=== PATIENT | male | born 1955 | race Caucasian/White ===

== ENCOUNTER → 2020-11-14 08:26 | Outpatient (BNVA) | payer OTHER, SELFPAY | PROVIDERS: PCP Internal Medicine; Referring Provider Internal Medicine; Visit Provider Surgery | DX: Z76.89 Persons encountering health services in other specified circumstances (principal) ==

== ENCOUNTER → 2021-09-06 12:02 | Outpatient (BNVA) | payer OTHER, SELFPAY | PROVIDERS: PCP Internal Medicine; Visit Provider Surgery ==

== ENCOUNTER → 2022-03-14 11:51 | Outpatient (BNVA) | payer OTHER, SELFPAY | PROVIDERS: PCP Internal Medicine; Visit Provider Surgery | DX: Z13.89 Encounter for screening for other disorder (principal) ==

== ENCOUNTER → 2023-04-26 10:17 | Outpatient (BNVA) | payer OTHER, SELFPAY | PROVIDERS: PCP Internal Medicine; Visit Provider Surgery ==

== ENCOUNTER 2023-07-19 10:43 | Outpatient (AMB) | payer MEDICARE, SELFPAY ==
--- NOTE | 2023-07-19 10:47 | A.OFFVIS_ITS ---
Intake VS Expanded 07/19/23 10:50 Height 6 ft 1 in Weight 218 lb 9.6 oz BMI 28.8 BP 156/90 H Blood Pressure Location Rt brachial Blood Pressure Position Sitting Pulse 87 Pulse Source Pulse Oximeter Temp 98.2 F Temperature Source Temporal Artery Scan Pulse Oximetry 97 Oxygen Delivery Method Room Air Body Fat 173.6 Body Fat Percentage 45.0 Free Fat Mass 173.0 Muscle Mass 65.0 Visceral Mass 13.0 Water Mass 122.6 BMR 2,290 Intake Visit Reasons: OV Follow Up s/p LRYGP 2012 Allergies No Known Allergies [No Known Allergies*] Allergy (Verified 07/19/23 10:50) HPI HPI Comments History of Present Illness Details Has lost 9lbs since April Is doing a breakfast (yogurt or cottage cheese), lunch (salad with burger) or 2 Zone Perfect protein bars and a dinner (chicken and salad) Exercise: treadmill for 600-1000 calories 5-6 days per week PFSH Surgical History Hx of gastric bypass Family History Mother Kidney failure Father COVID-19 Heart problem Sister No problems noted. Sister No problems noted. Sister No problems noted. Brother No problems noted. Brother No problems noted. Social History Alcohol intake: current Alcohol intake frequency: a few times a month Patient Tobacco Use Status: Never used Tobacco Physical Exam Vital Signs: Last Vital Signs Temp 98.2 F 07/19/23 10:50 Pulse 87 07/19/23 10:50 BP 156/90 H 07/19/23 10:50 Pulse Ox 97 07/19/23 10:50 Oxygen Delivery Method Room Air 07/19/23 10:50 BMI result Body Mass Index 28.8 Assessment & Plan Assessment & Plan (1) Intestinal malabsorption: Code(s): K90.9 - Intestinal malabsorption, unspecified Plan: 1. Continue same nutritional plan of a breakfast (yogurt or cottage cheese), lunch (salad with burger) or 2 Zone Perfect protein bars and a dinner (chicken and salad). 2. Try to do mostly one meal per day and replace the lunch with the 2 Zone Per fect protein bars 3. Exercise: continue treadmill for 600-1000 calories 5-6 days per week (2) Overweight: Code(s): E66.3 - Overweight Coding Level of Care Code Est Pt Level 3 (91051) Diagnoses Intestinal malabsorption K90.9 Overweight E66.3 Time Spent (min) 25
[2023-07-19 10:50] VITALS: BP 156/90; PULSE 87; TEMP 36.8; O2SAT 97; BMI 28.8
== END 2023-07-19 11:51 | disposition home or self-care (01) ==
PROVIDERS: PCP Internal Medicine; Visit Provider Surgery
DX: E66.3 Overweight (principal); Z68.28 Body mass index [BMI] 28.0-28.9, adult; Z98.84 Bariatric surgery status; K90.9 Intestinal malabsorption, unspecified
CPT/HCPCS: 99213

== ENCOUNTER → 2023-07-19 10:43 | Outpatient (BNVA) | payer MEDICARE, SELFPAY | PROVIDERS: PCP Internal Medicine; Visit Provider Surgery | DX: E66.3 Overweight (principal); K90.9 Intestinal malabsorption, unspecified; Z68.28 Body mass index [BMI] 28.0-28.9, adult | CPT/HCPCS: 99212 ==

== ENCOUNTER 2023-10-11 11:04 | Outpatient (AMB) | payer MEDICARE, BC, SELFPAY ==
--- NOTE | 2023-10-11 11:07 | A.OFFVIS_ITS ---
Intake VS Expanded 10/11/23 11:17 BP 181/96 H Blood Pressure Location Rt brachial Blood Pressure Position Sitting Pulse 76 Pulse Source Pulse Oximeter Temp 98.0 F Temperature Source Temporal Artery Scan Pulse Oximetry 100 Oxygen Delivery Method Room Air Height 6 ft 1 in Weight 217 lb 9.6 oz BMI 28.7 Body Fat % 21.7 Body Fat Mass 47.2 Fat Free Mass 170.4 Visceral Fat Rating 14.0 Body Water % 54.9 Body Water Mass 119.4 Muscle Mass/Score 162.0 Basal Metabolic Rate/Score 2,250 Intake Visit Reasons: OV Follow Up s/p LRYGP 2012 Allergies No Known Allergies [No Known Allergies*] Allergy (Verified 10/11/23 11:12) HPI HPI Comments History of Present Illness Details Overall weight loss: 74% EWL from his preop weight Doing well. No abdominal pain or GERD Is having a breakfast (a yogurt, a slice of toast and blueberries), lunch and dinner (sandwich or meat with salad) One snack: a cookie Exercise: treadmill 6 days per week for 500-1000 calories each time, 2 mile walk 6 days per week with dogs [facility] Surgical History Hx of gastric bypass Family History Mother Kidney failure Father COVID-19 Heart problem Sister No problems noted. Sister No problems noted. Sister No problems noted. Brother No problems noted. Brother No problems noted. Social History Alcohol intake: current Alcohol intake frequency: a few times a month Patient Tobacco Use Status: Never used Tobacco Physical Exam Vital Signs: Last Vital Signs Temp 98.0 F 10/11/23 11:17 Pulse 76 10/11/23 11:17 BP 181/96 H 10/11/23 11:17 Pulse Ox 100 10/11/23 11:17 Oxygen Delivery Method Room Air 10/11/23 11:17 BMI result Body Mass Index 28.7 Assessment & Plan Assessment & Plan (1) Overweight: Code(s): E66.3 - Overweight Plan 1. Continue same nutritional plan of a breakfast (a yogurt, a slice of toast and blueberries), lunch and dinner (sandwich or meat with salad) and one snack. 2. Consider, replacing breakfast, lunch and the snack 2-3 days per week with 3 protein bars 3. We discussed the importance of using protein bars as routinely as possible because they allow easier and more efficient protein/amino acid absorption than food due to his history of gastric bypass surgery. 4. Exercise: continue treadmill 6 days per week for 500-1000 calories each time, 2 mile walk 6 days per week with dogs Coding Level of Care Code Est Pt Level 4 (80941) Diagnoses Overweight E66.3 Time Spent (min) 30
[2023-10-11 11:17] VITALS: BP 181/96; PULSE 76; TEMP 36.7; O2SAT 100; BMI 28.7
== END 2023-10-11 11:52 | disposition home or self-care (01) ==
PROVIDERS: PCP Internal Medicine; Visit Provider Surgery
DX: E66.3 Overweight (principal); Z68.28 Body mass index [BMI] 28.0-28.9, adult; Z90.3 Acquired absence of stomach [part of]; Z98.84 Bariatric surgery status
CPT/HCPCS: 99214

== ENCOUNTER → 2023-10-11 11:04 | Outpatient (BNVA) | payer MEDICARE, BC, SELFPAY | PROVIDERS: PCP Internal Medicine; Visit Provider Surgery | DX: E66.3 Overweight (principal); Z68.28 Body mass index [BMI] 28.0-28.9, adult | CPT/HCPCS: 99212 ==

== ENCOUNTER 2024-10-09 10:15 | Outpatient (AMB) | payer MEDICARE, BC, SELFPAY ==
--- NOTE | 2024-10-07 22:17 | A.OFFVIS_ITS ---
VS Expanded 10/09/24 10:24 BP 168/92 H Blood Pressure Location Rt brachial Blood Pressure Position Left Lateral Pulse 86 Pulse Source Pulse Oximeter Temp 97.5 F Temperature Source Temporal Artery Scan Pulse Oximetry 98 Oxygen Delivery Method Room Air Height 6 ft 1 in Weight 220 lb 6.4 oz BMI 29.1 Body Fat % 22.5 Body Fat Mass 49.6 Fat Free Mass 170.6 Visceral Fat Rating 14.0 Body Water % 54.3 Body Water Mass 119.4 Muscle Mass/Score 162.2 Basal Metabolic Rate/Score 2,257 Neck Circumference 15 in Waist Circumference 3 ft 3 in Comment 150/86 left brachial Intake Visit Reasons: OV Follow Up s/p LRYGP 2012 Allergies No Known Allergies [No Known Allergies*] Allergy (Verified 10/09/24 10:20) Medication List - Last Reviewed 10/09/24 by Riana Knowles CMA lansoprazole 30 mg PO DAILY losartan 100 mg PO DAILY losartan-hydrochlorothiazide 100-25 mg 1 tab PO DAILY HPI Comments Details: Overall weight loss: 73% EWL from his preop weight Doing well. No abdominal pain or GERD Is having a breakfast (a yogurt, a slice of toast and blueberries), lunch and dinner (sandwich or meat with salad) One snack: a cookie Exercise: treadmill 6 days per week for 500-1000 calories each time, 2 mile walk 6 days per week with dogs Would like to lose another 5-10lbs until Spring [facility] Surgical History Hx of gastric bypass Family History Mother Kidney failure Father COVID-19 Heart problem Sister No problems noted. Sister No problems noted. Sister No problems noted. Brother No problems noted. Brother No problems noted. Social History Alcohol intake: current Alcohol intake frequency: a few times a month Patient Tobacco Use Status: Never used Tobacco Physical Exam Vital Signs: Last Vital Signs Temp 97.5 F 10/09/24 10:24 Pulse 86 10/09/24 10:24 BP 168/92 H 10/09/24 10:24 Pulse Ox 98 10/09/24 10:24 Oxygen Delivery Method Room Air 10/09/24 10:24 BMI result Body Mass Index 29.1 GI Inspection: Yes normal to inspection and Yes incision (well healed) Palpation (GI): Soft to palpation Extrem Right lower extremity: normal to inspection Left lower extremity: normal to inspection Assessment & Plan Assessment & Plan (1) Overweight: Code(s): E66.3 - Overweight Category: Surgical Plan: 1. Continue same nutritional plan of a breakfast (a yogurt, a slice of toast and blueberries), lunch and dinner (sandwich or meat with salad) and one snack. 2. Consider, replacing breakfast or the snack daily with 1 protein bar 3. We discussed the importance of using protein bars as routinely as possible because they allow easier and more efficient protein/amino acid absorption than food due to his history of gastric bypass surgery. 4. Exercise: continue treadmill 6 days per week for 500-1000 calories each time, 2 mile walk 6 days per week with dogs. I suggested if he could add an half treadmill session (another 300 calories) in the evening 6 days per week Orders: Orders Insulin 10/09/24 K90.9 - Intestinal malabsorption, unspecified Complete Blood Count Auto Diff 10/09/24 K.9 - Intestinal malabsorption, unspecified IRON PROFILE 10/09/24 K.9 - Intestinal malabsorption, unspecified Vitamin B1 10/09/24 K.9 - Intestinal malabsorption, unspecified Vitamin B12 and Folate 10/09/24 K.9 - Intestinal malabsorption, unspecified TSH reflex Free T4 10/09/24 K90.9 - Intestinal malabsorption, unspecified Hemoglobin A1c 10/09/24 K90.9 - Intestinal malabsorption, unspecified Lipid Panel 10/09/24 K90.9 - Intestinal malabsorption, unspecified Zinc 10/09/24 K90.9 - Intestinal malabsorption, unspecified Vitamin A 10/09/24 K90.9 - Intestinal malabsorption, unspecified Vitamin D 25-OH Total 10/09/24 K.9 - Intestinal malabsorption, unspecified Ferritin 10/09/24 K90.9 - Intestinal malabsorption, unspecified Comprehensive Met. Panel 10/09/24 K.9 - Intestinal malabsorption, unspecified C Reactive Protein 10/09/24 K90.9 - Intestinal malabsorption, unspecified
[2024-10-09 10:24] VITALS: BP 168/92; PULSE 86; TEMP 36.4; O2SAT 98; BMI 29.1
== END 2024-10-10 07:54 | disposition home or self-care (01) ==
PROVIDERS: PCP Internal Medicine; Visit Provider Surgery
DX: E66.3 Overweight (principal); Z68.29 Body mass index [BMI] 29.0-29.9, adult; K90.9 Intestinal malabsorption, unspecified; Z98.84 Bariatric surgery status
CPT/HCPCS: 99214

== ENCOUNTER → 2024-10-09 10:15 | Outpatient (BNVA) | payer MEDICARE, SELFPAY | PROVIDERS: PCP Internal Medicine; Visit Provider Surgery | DX: E66.3 Overweight (principal); Z68.29 Body mass index [BMI] 29.0-29.9, adult | CPT/HCPCS: 99212 ==

== ENCOUNTER 2024-12-18 10:50 | Outpatient (AMB) | payer MEDICARE, BC, SELFPAY ==
--- NOTE | 2024-12-18 10:56 | MHC.OFFVISWM ---
VS Expanded 12/18/24 11:01 BP 139/81 Blood Pressure Location Rt brachial Blood Pressure Position Sitting Pulse 79 Pulse Source Pulse Oximeter Temp 98.6 F Temperature Source Temporal Artery Scan Pulse Oximetry 99 Oxygen Delivery Method Room Air Height 6 ft 1 in Weight 212 lb 3.2 oz BMI 28.0 Body Fat % 21.4 Body Fat Mass 45.4 Fat Free Mass 166.6 Visceral Fat Rating 14.0 Body Water % 54.7 Body Water Mass 116.0 Muscle Mass/Score 158.6 Basal Metabolic Rate/Score 2,194 Intake Visit Reasons: (OV) Follow Up s/p LRYGP 2012 Allergies No Known Allergies [No Known Allergies*] Allergy (Verified 12/18/24 11:47) Medication List - Last Reconciled 12/18/24 by Davey Swan MD lansoprazole 30 mg PO DAILY losartan-hydrochlorothiazide 100-25 mg 1 tab PO DAILY HPI Comments Details: Overall weight loss: 77% EWL from surgery weight Was able to lose 8 lbs since last appointment in October Is doing a protein bar and 2 meals with one snack or 3 meals and a snack Is doing treadmill 6 days per well for 500-1000 calories per work-out [facility] Surgical History Hx of gastric bypass Family History Mother Kidney failure Father COVID-19 Heart problem Sister No problems noted. Sister No problems noted. Sister No problems noted. Brother No problems noted. Brother No problems noted. Social History (Updated 12/18/24 @ 10:59 by Riana Knowles CMA) Alcohol intake: current Alcohol intake frequency: a few times a month Alcohol type: beer Patient Tobacco Use Status: Never used Tobacco Physical Exam Vital Signs: Last Vital Signs Temp 98.6 F 12/18/24 11:01 Pulse 79 12/18/24 11:01 BP 139/81 12/18/24 11:01 Pulse Ox 99 12/18/24 11:01 Oxygen Delivery Method Room Air 12/18/24 11:01 BMI result Body Mass Index 28.0 GI Inspection: Yes normal to inspection and Yes incision (well healed) Palpation (GI): Soft to palpation Assessment & Plan Assessment & Plan (1) Intestinal malabsorption: Code(s): K90.9 - Intestinal malabsorption, unspecified Category: Medical Qualifiers: Intestinal malabsorption type: other Qualified Code(s): K90.89 - Other intestinal malabsorption Plan: 1. We discussed the recent blood work. Everything looks good except from the hemoglobin that it is a little low. He had colonoscopy one year ago and it was normal. In view of that and the fact that his iron level was normal, I believe it is related with mild protein malnutrition. I recommended that he routinely replaced the breakfast with a protein bar. 2. Continue present exercise plan
[2024-12-18 11:01] VITALS: BP 139/81; PULSE 79; TEMP 37; O2SAT 99; BMI 28.0
== END 2024-12-18 11:52 | disposition home or self-care (01) ==
PROVIDERS: PCP Internal Medicine; Visit Provider Surgery
DX: K90.89 Other intestinal malabsorption (principal)
CPT/HCPCS: 99213

== ENCOUNTER → 2024-12-18 10:50 | Outpatient (BNVA) | payer MEDICARE, BC, SELFPAY | PROVIDERS: PCP Internal Medicine; Visit Provider Surgery | DX: K90.9 Intestinal malabsorption, unspecified (principal) | CPT/HCPCS: 99212 ==

== ENCOUNTER 2025-04-09 10:58 | Outpatient (AMB) | payer MEDICARE, BC, SELFPAY ==
--- NOTE | 2025-04-09 11:14 | MHC.OFFVISWM ---
VS Expanded 04/09/25 11:42 BP 138/80 Blood Pressure Location Lt brachial Blood Pressure Position Sitting Pulse 77 Pulse Source Pulse Oximeter Temp 97.5 F Temperature Source Temporal Artery Scan Pulse Oximetry 98 Height 6 ft 1 in Weight 218 lb 6.4 oz BMI 28.8 Body Fat % 23 Body Fat Mass 50.2 Fat Free Mass 168 Visceral Fat Rating 14 Body Water % 53.5 Body Water Mass 116.8 Muscle Mass/Score 159.8 Basal Metabolic Rate/Score 2,221 Intake Visit Reasons: (OV) Follow Up s/p LRYGP 2012 Allergies No Known Allergies [No Known Allergies*] Allergy (Verified 12/18/24 11:47) HPI Comments Details: Overall weight loss: 77% EWL from surgery weight Has gained 6lbs since last appointment in December Is doing a protein bar and 2 meals with one snack or 3 meals and a snack. He uses the bar occasionally. Is doing treadmill 6 days per well for 500-1000 calories per work-out. He has not been exercising last 2 weeks due an injury at his leg. [facility] Surgical History Hx of gastric bypass Family History Mother Kidney failure Father COVID-19 Heart problem Sister No problems noted. Sister No problems noted. Sister No problems noted. Brother No problems noted. Brother No problems noted. Social History (Updated 12/18/24 @ 10:59 by Riana Knowles CMA) Alcohol intake: current Alcohol intake frequency: a few times a month Alcohol type: beer Patient Tobacco Use Status: Never used Tobacco Physical Exam Vital Signs: Last Vital Signs Temp 97.5 F 04/09/25 11:42 Pulse 77 04/09/25 11:42 BP 138/80 04/09/25 11:42 Pulse Ox 98 04/09/25 11:42 BMI result Body Mass Index 28.8 GI Inspection: Yes normal to inspection and Yes incision (well healed) Palpation (GI): Soft to palpation Extrem Right lower extremity: normal to inspection Left lower extremity: normal to inspection Assessment & Plan Assessment & Plan (1) Intestinal malabsorption: Code(s): K90.9 - Intestinal malabsorption, unspecified Category: Medical Qualifiers: Intestinal malabsorption type: other Qualified Code(s): K90.89 - Other intestinal malabsorption Plan: 1. Try to use at least one bar consistently plus 2 meals 2. Restart exercise plan
--- OUTSIDE RECORDS SUMMARY | 2025-04-09 11:30 | XMS_ITS | Clinical Summary ---
Author Organization [facility] Address [address] [place] [address] Care Team Providers Care International Broadcast Music Librarian Name Role Phone Unavailable Primary Care Provider Unavailabl e Social History Tobacco Use Types Packs/Day Years Used Date Smoking Tobacco: Never Assessed Sex and Gender Information Value Date Recorded Sex Assigned at Not on file Gender Identity Not on file Sexual Orientation Not on file Plan of Treatment Health Maintenance Due Date Last Done Comments Hepatitis C Screening 1955 COVID-19 Vaccine (#1) 01/19/1955 Depression Screening 1966 Preventative Health Evaluation 1972 DTap / Tdap / Td (1 - Tdap) 1973 Colon Cancer Screening (Colonoscopy) 1999 Shingrix-Zoster Vaccine (1 of 2) 2004 Fall Risk Assessment 2019 Pneumococcal Vaccine (1 of 1 - PCV) 2019 Influenza Vaccine (#1) 2024 RSV Adult > 60+ Yrs or Pregn ant (1 - 1-dose 75+ series) 2029 Hepatitis B Vaccines Aged Out No long er eligible based on patient's age to complete this topic RSV Ped < 20 months Aged Out No longe r eligible based on patient's age to complete this topic
--- OUTSIDE RECORDS SUMMARY | 2025-04-09 11:30 | XMS_ITS | Encounter Summary ---
Author Organization [facility] Address [address] [place] [address] Care Team Providers Care Product Safety Expert Name Role Phone Kavin Morrison DO Primary Care Provider + [phone] Kavin Morrison DO Unavailable [phone] Kavin Morrison DO Unavailable [phone] Encounter Details Date Type Department Care Team (Late st Contact Info) Description 03/06/2024 Scanned Document [facility] [address] [facility] [place] [address] Maegan Howard MD [address] [facility] [address] [place], [place] [id number] Social History Tobacco Use Types Packs/Day Years Used Date Smoking Tobacco: Never Smokeless Tobacco: Never Alcohol Use Standard Drinks/Week Comments Not Currently 0 (1 standard drink = 0.6 oz pur e alcohol) Sex and Gender Information Value Date Recorded Sex Assigned at Not on file Legal Sex Male 3:37 PM EDT Gender Identity Not on file Sexual Orientation Not on file documented as of this encounter Plan of Treatment Upcoming Encounters Date Type Department Care Team (Late Contact Info) Description 04/30/2025 11:30 AM EDT Office Visit [facility] Department of Internal Medicine Kavin Morrison MD [address] [place] [address] Kavin Morrison DO [address] [place] [address] documented as of this encounter Visit Diagnoses Not on filedocumented in this encounter Care Teams Product Safety Expert Relationship Specialty Start Date End Date Kavin Morrison DO [address] [facility] [address] [place] [address] PCP - General Internal Medicine 07/05/16 Kavin Morrison DO [address] [place] [address] PCP - [place] Medicare Patients 03/02/24 05/31/24 Kavin Morrison DO [address] [place] [address] PCP - [place] Luevano MA attributed 06/01/24 08/01/24 documented as of this encounter
--- OUTSIDE RECORDS SUMMARY | 2025-04-09 11:30 | XMS_ITS | Encounter Summary ---
Author Organization [facility] Address [address] [place] [address] Care Team Providers Care Straightening Press Operator Helper Name Role Phone Kavin Morrison DO Primary Care Provider Kavin Morrison DO Unavailable [phone] Kavin Morrison DO Unavailable [phone] Encounter Details Date Type Department Care Team (Late st Contact Info) Description 08/16/2020 Scanned Document [facility] [address] [facility] [place] [address] Maegan Howard MD [address] [facility] [place] [address] Social History Tobacco Use Types Packs/Day Years Used Date Smoking Tobacco: Never Assessed Sex and Gender Information Value Date Recorded Sex Assigned at Not on file Legal Sex Male 3:37 PM EDT Gender Identity Not on file Sexual Orientation Not on file documented as of this encounter Plan of Treatment Upcoming Encounters Date Type Department Care Team (Late st Contact Info) Description 04/30/2025 11:30 AM EDT Office Visit [facility] Department of Internal Medicine Kavin Morrison MD [address] [place] [id number] Kavin Morrison DO [address] [place] [address] documented as of this encounter Visit Diagnoses Not on filedocumented in this encounter Care Teams Straightening Press Operator Helper Relationship Specialty Start Date End Date Kavin Morrison DO [address] [facility] [address] [place] [address] PCP - General Internal Medicine 07/05/16 Kavin Morrison DO [address] [place] [address] PCP - [facility] Medicare Patients 03/02/24 05/31/24 Kavin Morrison DO [address] [place] [address] PCP - [place] Bassem PINEDA attributed 06/01/24 08/01/24 documented as of this encounter
--- OUTSIDE RECORDS SUMMARY | 2025-04-09 11:30 | XMS_ITS | Clinical Summary ---
Author Organization [facility] Address [address] [place] [address] Care Team Providers Care Movie Machine Operator Name Role Phone Kavin Morrison DO Primary Care Provider [phone] Allergies No known active allergies Medications lansoprazole (PREVACID) 30 MG capsule Take 30 mg by mouth daily. 07/12/2023 Active losartan-hydroCHL OROthiazide (HYZAAR) 100-25 MG per tabletIndications :Essential hypertension Take 1 tablet by mouth daily. 90 tablet 3 04/17/2024 Active Active Problems Problem Noted Date Diagnosed Date Gout 03/24/2023 03/24/2023 Essential hypertension 06/16/2012 Resolved Problems Problem Noted Date Diagnosed Date Resolved Date Routine general medical exam ination at a health care facility 04/12/2023 10/28/2024 Immunizations Immunization Administration Dates Next Due Tdap 02/19/2019,12/14/2008 Social History Tobacco Use Types Packs/Day Years Used Date Smoking Tobacco: Never Smokeless Tobacco: Never Tobacco Cessation:Counseling Given: Not Answered Alcohol Use Standard Drinks/Week Comments Not Currently 0 (1 standard drink = 0.6 oz pur e alcohol) PHQ-2 Answer Date Recorded PHQ-2 Total Score 0 04/17/2024 Sex and Gender Information Value Date Recorded Sex Assigned at Not on file Legal Sex Male 3:37 PM EDT Gender Identity Not on file Sexual Orientation Not on file Last Filed Vital Signs Vital Sign Reading Time Taken Comments Blood Pressure 120/82 09/30/2024 1:10 PM EDT Pulse 81 06/12/2024 12:11 PM EDT Temperature 36.8 ??C (98.3 ??F) 06/12/2024 12:11 PM E DT Respiratory Rate 18 03/06/2024 9:25 AM EDT Oxygen Saturation 99% 06/12/2024 12:11 PM EDT Inhaled Oxygen Concentration - - Weight 99.8 kg (220 lb) 06/12/2024 12:11 PM EDT Height 182.9 cm (6') 04/17/2024 11:07 AM EDT Body Mass Index 29.84 04/17/2024 11:07 AM EDT Plan of Treatment Upcoming Encounters Date Type Department Care Team (Late st Contact Info) Description 04/30/2025 11:30 AM EDT Office Visit [facility] Department of Internal Medicine Kavin Morrison MD [address] [place] [id number] Kavin Morrison DO [address] [place], [place] [id number] Health Maintenance Due Date Last Done Comments Hepatitis C Virus Screening 1955 Pneumococcal Vaccines 50+ (1 of 1 - PCV) 2004 Zoster (Shingles) Vaccine (1 of 2) 2004 COVID-19 Vaccine ( - 2023-2 5 season) 2024 Influenza Vaccine 07/02/2025 DTaP/Tdap/Td Vaccines (3 - T d or Tdap) 02/19/2029 02/19/2019, 12/14/2008 RSV Vaccine 60 years and older and Patients (1 - 1-dose 75+ series) 2029 Colonoscopy 03/06/2034 03/06/2024, 11/07/2023 Hepatitis B Vaccines Aged Out No long er eligible based on patient's age to complete this topic Insurance MEDICARE PART A & [place] [id number] [place] [address] MEDICARE PART A & [place] [id number] MEDICARE PART A & [place] [address] Care Teams Movie Machine Operator Relationship Specialty Start Date End Date Kavin Morrison DO [address] [place] [address] [address] [place] [address] PCP - General Internal Medicine 07/05/16
--- OUTSIDE RECORDS SUMMARY | 2025-04-09 11:30 | XMS_ITS | Encounter Summary ---
Author Organization [facility] Address [address] [place] [address] Care Team Providers Care Assistant Sales Center Manager Name Role Phone Kavin Morrison DO Primary Care Provider + [phone] Kavin Morrison DO Unavailable [phone] Kavin Morrison DO Unavailable [phone] Encounter Details Date Type Department Care Team (Late Contact Info) Description 11/07/2023 Scanned Document [facility] [address] [facility] [place] [address] Maegan Howard MD [address] [facility] [address] [place], [place] [phone] Social History Tobacco Use Types Packs/Day Years [...] Description 04/30/2025 11:30 AM EDT [facility] Department of Internal Medicine Kavin Morrison MD [address] [place] [address] Kavin Morrison DO [address] [place] [address] documented as of this encounter Visit Diagnoses Not on filedocumented in this encounter Care Teams Assistant Sales Center Manager Relationship Specialty Start Date End Date Kavin Morrison DO [address] [facility] [address] [place] [address] PCP - General Internal Medicine 07/05/16 Kavin Morrison DO [address] [place] [address] PCP - [place] Medicare Patients 03/02/24 05/31/24 Kavin Morrison DO [address] [place] [address] PCP - [place] Luevano MA attributed 06/01/24 08/01/24 documented as of this encounter
[2025-04-09 11:42] VITALS: BP 138/80; PULSE 77; TEMP 36.4; O2SAT 98; BMI 28.8
== END 2025-04-09 19:15 | disposition home or self-care (01) ==
LOC: HO.HBS 10:59
PROVIDERS: PCP Internal Medicine; Visit Provider Surgery
DX: K90.89 Other intestinal malabsorption (principal)
CPT/HCPCS: 99214

== ENCOUNTER → 2025-04-09 10:58 | Outpatient (BNVA) | payer MEDICARE, BC, SELFPAY | PROVIDERS: PCP Internal Medicine; Visit Provider Surgery | DX: K90.89 Other intestinal malabsorption (principal) | CPT/HCPCS: 99212 ==

== ENCOUNTER 2025-07-30 10:42 | Outpatient (AMB) | payer MEDICARE, BC, SELFPAY ==
--- NOTE | 2025-07-30 10:45 | A.OFFVIS_ITS ---
VS Expanded 07/30/25 11:23 BP 148/94 H Blood Pressure Location Rt brachial Blood Pressure Position Sitting Pulse 76 Pulse Source Pulse Oximeter Temp 97.1 F Temperature Source Temporal Artery Scan Pulse Oximetry 98 Oxygen Delivery Method Room Air Height 6 ft 1 in Weight 218 lb 12.8 oz BMI 28.9 Body Fat % 22.9 Body Fat Mass 50.0 Fat Free Mass 168.6 Visceral Fat Rating 15.0 Body Water % 53.6 Body Water Mass 117.2 Muscle Mass/Score 160.2 Basal Metabolic Rate/Score 2,229 Intake Visit Reasons: (OV) Follow Up s/p LRYGP 2012 Allergies No Known Allergies (No Known Allergies*) Allergy (Verified 07/30/25 12:59) Medication List - Last Reconciled 07/30/25 by Davey Swan MD lansoprazole 30 mg PO DAILY losartan-hydrochlorothiazide 100-25 mg 1 tab PO DAILY HPI Comments Details: Weight is stable Is doing one protein bar per day and 2 meals Exercise: treadmill for 500 calories x3/wk at a speed of 5.2 mph and incline up to 3.5. Complains of knee/hip pain PFSH Surgical History Hx of gastric bypass Family History Mother Kidney failure Father COVID-19 Heart problem Sister No problems noted. Sister No problems noted. Sister No problems noted. Brother No problems noted. Brother No problems noted. Social History Alcohol intake: current Alcohol intake frequency: a few times a month Alcohol type: beer Patient Tobacco Use Status: Never used Tobacco Physical Exam Vital Signs: Last Vital Signs Temp 97.1 F 07/30/25 11:23 Pulse 76 07/30/25 11:23 BP 148/94 H 07/30/25 11:23 Pulse Ox 98 07/30/25 11:23 Oxygen Delivery Method Room Air 07/30/25 11:23 BMI result Body Mass Index 28.9 Assessment & Plan Assessment & Plan (1) Overweight: Code(s): E66.3 - Overweight Category: Surgical Plan: 1. Try the 16gr Fit Crunch or Barebell protein bars 2. Do at least two protein bars per day and 2 food-based meals 3. Change treadmill to 300 calories per day at a speed of 4.4mph and incline 0- 6.
--- OUTSIDE RECORDS SUMMARY | 2025-07-30 11:21 | XMS_ITS | Clinical Summary ---
Author Organization [facility] Address [address] [place] [address] Care Team Providers Care Transportation Broker Name Role Phone Kavin Morrison DO Primary Care Provider [phone] Allergies No known active allergies Medications lansoprazole (PREVACID) 30 MG capsule Take 30 mg by mouth daily. 07/12/2023 Active losartan-hydroCHL OROthiazide (HYZAAR) 100-25 MG per tabletIndications :Essential hypertension TAKE 1 TABLET BY MOUTH EVERY DAY 90 tablet 3 04/11/2025 Active Active Problems Problem Noted Date Diagnosed Date Gout 03/24/2023 03/24/2023 Essential hypertension 06/16/2012 Resolved Problems Problem Noted Date Diagnosed Date Resolved Date Routine general medical exam ination at a health care facility 04/12/2023 10/28/2024 Encounters Date Type Department Care Team Description 05/07/2025 Telephone [facility] Department of Internal Medicine Kavin Morrison MD [address] [place] [phone] Kavin Morrison DO 04/30/2025 11:30 AM EDT Office Visit [facility] Department of Internal Medicine Kavin Morrison MD [address] [place] [phone] Kavin Morrison DO Routine general medical examination at a health care facility (Primary Dx) 04/30/2025 Telephone [facility] Department of Internal Medicine Kavin Morrison MD [address] [place] [address] Kavin Morrison DO 04/30/2025 Orders Only [facility] Department of Internal Medicine Kavin Morrison MD [address] [place] [phone] Kavin Morrison DO Benign prostatic hyperplasia without lower urinary tract symptoms (Primary Dx) from Last 3 Months Immunizations Immunization Administration Dates Next Due Tdap 02/19/2019,12/14/2008 Family History Medical History Relation Name Comments Heart failure Father age 93 Kidney disease Mother age 85 Relation Name Status Comments Father Mother Social History Tobacco Use Types Packs/Day Years Used Date Smoking Tobacco: Never Smokeless Tobacco: Never Tobacco Cessation:Counseling Given: Not Answered Alcohol Use Standard Drinks/Week Comments Not Currently 0 (1 standard drink = 0.6 oz pur e alcohol) PHQ-2 Answer Date Recorded PHQ-2 Total Score 0 04/30/2025 Sex and Gender Information Value Date Recorded Sex Assigned at Not on file Legal Sex Male 3:37 PM EDT Gender Identity Not on file Sexual Orientation Not on file Last Filed Vital Signs Vital Sign Reading Time Taken Comments Blood Pressure 132/92 04/30/2025 11:41 AM EDT Pulse 96 04/30/2025 11:41 AM EDT Temperature 36.2 C (97.1 F) 04/30/2025 11:41 AM EDT Respiratory Rate 18 03/06/2024 9:25 AM EDT Oxygen Saturation 98% 04/30/2025 11:41 AM EDT Inhaled Oxygen Concentration - - Weight 98.9 kg (218 lb) 04/30/2025 11:41 AM EDT Height 186.7 cm (6' 1.5 ) 04/30/2025 11:41 AM ED T Body Mass Index 28.37 04/30/2025 11:41 AM EDT Plan of Treatment Upcoming Encounters Date Type Department Care Team (Late st Contact Info) Description 05/13/2026 11:30 AM EDT Office Visit [facility] Department of Internal Medicine Kavin Morrison MD [address] [place] [phone] Kavin Morrison DO [address] [place] [address] Health Maintenance Due Date Last Done Comments Advance Care Planning 1955 Hepatitis C Virus Screening 1955 Pneumococcal Vaccines 50+ (1 of 1 - PCV) 2004 Zoster (Shingles) Vaccine (1 of 2) 2004 COVID-19 Vaccine (1 - 2023-2 5 season) 2024 Influenza Vaccine 07/02/2025 DTaP/Tdap/Td Vaccines (3 - T d or Tdap) 02/19/2029 02/19/2019, 12/14/2008 RSV Vaccine 60 years and older and Patients (1 - 1-dose 75+ series) 2029 Colonoscopy 03/06/2034 03/06/2024, 11/07/2023 Hepatitis B Vaccines Aged Out No long er eligible based on patient's age to complete this topic Procedures Procedure Name Priority Date/Time Associated Diagnosis Comments PSA, TOTAL, REFLEX PSA, FREE Routine 05/06/2025 2:41 PM EDT Benign prostatic hyperplasia without lower urinary tract symptoms ECG 12-LEAD Routine 04/30/2025 11:52 AM EDT Routine general medical examination at a health care facility from Last 3 Months Results * PSA, TOTAL, REFLEX PSA, FREE (05/06/2025 2:41 PM EDT) PSA, Total 0.560 0.000 - 4.000 ng/mL [facility] Comment: Cristel ECLIA methodology. Values obtained with different assay methods or kits cannot be used interchangeably. Results cannot be interpreted as absolute evidence of the presence or absence of malignant disease. Blood Blood specimen / Unknown 05/06/2025 2:41 PM EDT 05/06/2025 6:00 PM EDT us Kavin Morrison DO LAB BLOOD ORDERABLES Final Result [facility] [address] [place] [id number], * ECG 12 lead (04/30/2025 11:52 AM EDT) 04/30/2025 11:5 2 AM EDT Kavin Morrison DO ECG ORDERABLES Final Resu lt from Last 3 Months Insurance MEDICARE PART A [place] [id number] MEDICARE [place] [id number] MEDICARE [place] [id number] Care Teams Transportation Broker Relationship Specialty Start Date End Date Kavin Morrison DO [address] [place] [address] [address] [place], [place] [phone] PCP - General Internal Medicine 07/05/16
--- OUTSIDE RECORDS SUMMARY | 2025-07-30 11:21 | XMS_ITS | Encounter Summary ---
Author Organization [facility] Address [address] [place] [address] Care Team Providers Care Contact Acid Plant Operator Helper Name Role Phone Kavin Morrison DO Primary Care Provider Kavin Morrison DO Unavailable [phone] Kavin Morrison DO Unavailable [phone] Encounter Details Date Type Department Care Team (Late st Contact Info) Description 08/16/2020 Scanned Document [facility] [address] [facility] [place] [address] Maegan Howard MD [address] [facility] [place] [address] Social History Tobacco Use Types Packs/Day Years [...] Description 05/13/2026 11:30 AM EDT Office Visit [facility] Department of Internal Medicine Kavin Morrison MD [address] [place] [phone] Kavin Morrison DO [address] [place] [address] documented as of this encounter Visit Diagnoses Not on filedocumented in this encounter Care Teams Contact Acid Plant Operator Helper Relationship Specialty Start Date End Date Kavin Morrison DO [address] [facility] [address] [place] [address] PCP - General Internal Medicine 07/05/16 Kavin Morrison DO [address] [place] [address] PCP - [facility] Medicare Patients 03/02/24 05/31/24 Kavin Morrison DO [address] [place] [address] PCP - Rashiling Bassem PINEDA attributed 06/01/24 08/01/24 documented as of this encounter
--- OUTSIDE RECORDS SUMMARY | 2025-07-30 11:21 | XMS_ITS | Encounter Summary ---
Author Organization [facility] Address [address] [place] [address] Care Team Providers Care Residence Director Name Role Phone Kavin Morrison DO Primary Care Provider + [phone] Kavin Morrison DO Unavailable [phone] Kavin Morrison DO Unavailable [phone] Encounter Details Date Type Department Care Team (Late Contact Info) Description 11/07/2023 Scanned Document [facility] [address] [facility] [address] [place] [address] Maegan Howard MD [address] [facility] [address] [place], [place] [phone] Social History Tobacco Use Types Packs/Day Years [...] Department Care Team (Late Contact Info) Description 05/13/2026 11:30 AM EDT [facility] Department [facility] Medicine Kavin Morrison MD [address] [place] [address] Kavin Morrison DO [address] [place] [address] documented as of this encounter Visit Diagnoses Not on filedocumented in this encounter Care Teams Residence Director Relationship Specialty Start Date End Date Kavin Morrison DO [address] [facility] [address] [place] [address] PCP - General Internal Medicine 07/05/16 Kavin Morrison DO [address] [place] [address] PCP - [facility] Medicare Patients 03/02/24 05/31/24 Kavin Morrison DO [address] [place] [address] PCP - [facility] Luevano MA attributed 06/01/24 08/01/24 documented as of this encounter
--- OUTSIDE RECORDS SUMMARY | 2025-07-30 11:21 | XMS_ITS | Encounter Summary ---
Author Organization [facility] Address [address] [place] [address] Care Team Providers Care Family Practitioner Name Role Phone Kavin Morrison DO Primary Care Provider + [phone] Kavin Morrison DO Unavailable [phone] Kavin Morrison DO Unavailable [phone] Encounter Details Date Type Department Care Team (Late st Contact Info) Description 03/06/2024 Scanned Document [facility] [address] [facility] [place] [address] Maegan Howard MD [address] [facility] [address] [place], [place] [phone] Social History Tobacco Use Types Packs/Day Years [...] Description 05/13/2026 11:30 AM EDT [facility] Kavin Morrison MD [address] [place] [phone] Kavin Morrison DO [address] [place] [address] documented as of this encounter Visit Diagnoses Not on filedocumented in this encounter Care Teams Family Practitioner Relationship Specialty Start Date End Date Kavin Morrison DO [address] [facility] [address] [place] [address] PCP - General Internal Medicine 07/05/16 Kavin Morrison DO [address] [place] [address] PCP - [facility] Medicare Patients 03/02/24 05/31/24 Kavin Morrison DO [address] [place] [address] PCP - [facility] Luevano MA attributed 06/01/24 08/01/24 documented as of this encounter
--- OUTSIDE RECORDS SUMMARY | 2025-07-30 11:21 | XMS_ITS | Clinical Summary ---
Author Organization [facility] Address [address] [place] [address] Care Team Providers Care Liturgical Music Director Name Role Phone Unavailable Primary Care Provider [...] 1 - PCV) 2019 Influenza Vaccine (#1) 2025 RSV Adult > 60+ Yrs or Pregn ant (1 - 1-dose 75+ series) 2029 Hepatitis B Vaccines Aged Out No long er eligible based on patient's age to complete this topic RSV Ped < 20 months Aged Out No longe r eligible based on patient's age to complete this topic
--- OUTSIDE RECORDS SUMMARY | 2025-07-30 11:21 | XMS_ITS ---
Author Name [facility] Organization Unknown History of Medication Use Medication Directions Dispensed Refills Start Date End Date Stat lansoprazole (PREVACID) 30 MG capsule Take 30 mg by mouth daily. 07/12/2023 active Problems Problem Status Onset Date Problem Type Date of Resoluti on Source Essential hypertension active 2012-06-16 ProblemAct [facility] Gout active 2023-03-24 ProblemAct [facility] Immunizations Vaccine Date Source Lot Number Status Tdap 02/19/2019 [facility] completed Tdap 12/14/2008 [facility] completed Encounters Encounter Type Encounter Reason Primary Diagnosis Location Date [facility]ulatory [facility] 05/06/2025 Ambulatory Encounter for general adult medical examination without abnormal findings Encounter for general adult medical examination without abnormal findings [facility] [place] [facility] 04/30/2025 [facility] 11/30/2024 [facility] 09/30/2024 [facility] 06/12/2024 Ambulatory Encounter for general adult medical examination without abnormal findings Encounter for general adult medical examination without abnormal findings [facility] [place] [facility] 04/17/2024 [facility] 04/13/2024 Ambulatory Personal history of colonic polyps Personal history of colonic polyps [facility] [place] [facility] 03/06/2024 Ambulatory Personal history of colonic polyps Personal history of colonic polyps [facility] [place] [facility] 11/07/2023 Ambulatory Encounter for general adult medical examination without abnormal findings [facility] [place] [facility] 04/12/2023 [facility]ulatory [facility] 04/03/2023 Care Team Organization Name Specialty Phone Email Start Date End [facility] 04/30/2025 06/05/2025 [facility] 04/14/2025 [facility] 05/21/2024 08/18/2024 [facility]03[facility]202306/05 [facility] 04/03/2023
[2025-07-30 11:23] VITALS: BP 148/94; PULSE 76; TEMP 36.2; O2SAT 98; BMI 28.9
== END 2025-07-30 13:02 | disposition home or self-care (01) ==
LOC: HO.HBS 10:43
PROVIDERS: PCP Internal Medicine; Visit Provider Surgery
DX: E66.3 Overweight (principal); Z68.28 Body mass index [BMI] 28.0-28.9, adult
CPT/HCPCS: 99213

== ENCOUNTER → 2025-07-30 10:42 | Outpatient (BNVA) | payer MEDICARE, BC, SELFPAY | PROVIDERS: PCP Internal Medicine; Visit Provider Surgery | DX: E66.3 Overweight (principal); Z68.28 Body mass index [BMI] 28.0-28.9, adult | CPT/HCPCS: 99212 ==

== ENCOUNTER → 2025-11-18 11:29 | Outpatient (BNVA) | payer MEDICARE, BC, SELFPAY | PROVIDERS: PCP Internal Medicine; Visit Provider Surgery | DX: Z71.3 Dietary counseling and surveillance (principal); K90.89 Other intestinal malabsorption | CPT/HCPCS: 99212 ==

== ENCOUNTER 2025-11-18 11:44 | Outpatient (AMB) | payer MEDICARE, BC, SELFPAY ==
--- NOTE | 2025-11-18 11:50 | MHC.OFFVISWM ---
VS Expanded 11/18/25 11:52 BP 157/86 H Blood Pressure Location Rt brachial Blood Pressure Position Sitting Pulse 84 Pulse Source Pulse Oximeter Temp 97.6 F Temperature Source Temporal Artery Scan Pulse Oximetry 98 Oxygen Delivery Method Room Air Height 6 ft 1 in Weight 210 lb 12.8 oz BMI 27.8 Body Fat % 18.0 Body Fat Mass 38.0 Fat Free Mass 172.8 Visceral Fat Rating 12.0 Body Water % 57.9 Body Water Mass 122.2 Muscle Mass/Score 164.4 Basal Metabolic Rate/Score 2,268 Intake Visit Reasons: (OV) Follow Up s/p LRYGP 2012 Allergies No Known Allergies (No Known Allergies*) Allergy (Verified 11/18/25 11:51) HPI Comments Details: Has lost 8lbs since previous appointment. No complaints Fell at a store and required ORIF of left wrist Is having a toast or yogurt for breakfast, lunch and dinner (6 forkfuls of meat and 6 fokfuls of salad, each) No snacks Exercise: is doing treadmill 350-500 calories x4-5/week PFSH Surgical History Hx of gastric bypass Family History Mother Kidney failure Father COVID-19 Heart problem Sister No problems noted. Sister No problems noted. Sister No problems noted. Brother No problems noted. Brother No problems noted. Social History Alcohol intake: current Alcohol intake frequency: a few times a month Alcohol type: beer Patient Tobacco Use Status: Never used Tobacco Physical Exam Vital Signs: Last Vital Signs Temp 97.6 F 11/18/25 11:52 Pulse 84 11/18/25 11:52 BP 157/86 H 11/18/25 11:52 Pulse Ox 98 11/18/25 11:52 Oxygen Delivery Method Room Air 11/18/25 11:52 BMI result Body Mass Index 27.8 Assessment & Plan Assessment & Plan (1) Intestinal malabsorption: Code(s): K90.9 - Intestinal malabsorption, unspecified Category: Medical Qualifiers: Intestinal malabsorption type: other Qualified Code(s): K90.89 - Other intestinal malabsorption Plan: 1. Increase exercise to 400 calories x 5 days/week 2. To purchase a stationary bike and alternate with the treadmill 3. To prefer the yogurt for breakfast 4. Add a 15gr liquid Oikos shake per day 5. Will do blood work at next visit
[2025-11-18 11:52] VITALS: BP 157/86; PULSE 84; TEMP 36.4; O2SAT 98; BMI 27.8
== END 2025-11-18 22:18 | disposition home or self-care (01) ==
LOC: HO.HBS 11:44
PROVIDERS: PCP Internal Medicine; Visit Provider Surgery
DX: K90.89 Other intestinal malabsorption (principal)
CPT/HCPCS: 99213